=== PATIENT | male | born 1980 | race Hispanic/Latino ===

== ENCOUNTER 2023-07-29 08:44 | Day surgery (SDC) | payer OTHER ==
[~2023-07-29] VITALS: Ht 180.3 cm; Wt 74.8 kg
[~2023-07-29 08:44] MED LIST: ASPIRIN325 MG PO; GLYCOPYRROLATE 0.2 MG/ML IV ONE; KETOROLAC TROMETHAMINE 30 MG/ML SDV IV ONE; LIDOCAINE HCL 2% 2ML SDV IV ONE; PROPOFOL 200 MG/20 ML VIAL IV ONE; ROCURONIUM BROMIDE 10 MG/ML 5ML VIAL IV ONE; SUGAMMADEX SODIUM 200 MG/2 ML SDV IV ONE
[2023-07-29] MEDS ORDERED: LACTATED RINGER'S 1,000 ML IV ONE ×2 (09:03→12:42)
[2023-07-29] MEDS ORDERED: FAMOTIDINE 10MG/ML 2ML SDV IV ONE (09:03)
[2023-07-29] MEDS ORDERED: SODIUM CHLORIDE 0.9% 100 ML IV ONE (09:23)
[2023-07-29] MEDS ORDERED: ceFAZolin Sodium 2 GM/VIAL SDV ONE (09:23)
[2023-07-29] MEDS ORDERED: SODIUM CHLORIDE 20 ML/VIAL SDV ONE (10:52)
[2023-07-29] MEDS ORDERED: BUPIVACAINE 133 MG/10 ML VIAL IJ ONE (10:53)
[2023-07-29] MEDS ORDERED: PERCOCET 5/325M1 TAB PO (12:07)
[2023-07-29] MEDS ORDERED: SODIUM CHLORIDE 1,000 ML BTL IR ONE (12:31)
[2023-07-29] MEDS ORDERED: STERILE WATER FOR IRRIGATION 1,000 ML BTL IR ONE (12:31)
[2023-07-29] MEDS ORDERED: ACETAMINOPHEN 100 ML IV ONE (12:31)
[2023-07-29] MEDS ORDERED: ONDANSETRON HCl 4 MG/2 ML SDV ONE (12:38)
[2023-07-29] MEDS ORDERED: HYDROmorphone HCL 2 MG/AMP ONE (12:38)
[2023-07-29 13:45] VITALS: BP 111/75
== END 2023-07-29 13:41 | disposition home or self-care (01) | DRG 355 ==
LOC: ORM 08:44
PROVIDERS: ATTEND Surgery
PROC: 0WQF0ZZ Repair Abdominal Wall, Open Approach (ICD-10-PCS; principal; 2023-07-29)
DX: K42.0 Umbilical hernia with obstruction, without gangrene (principal)
CPT/HCPCS: C9290; J0131; J0690